=== PATIENT | female | born 1970 | race Caucasian/White ===

== ENCOUNTER 2020-01-04 11:32 | Outpatient (CLI) | payer MEDICAID, SELFPAY ==
--- NOTE | 2020-01-04 11:30 | DI.RAD_ITS ---
EXAM: XR KNEE RT 2V AP,LAT CLINICAL HISTORY: pain. TECHNIQUE: 2D digital imaging was performed. COMPARISON: [facility] KNEE [facility] 4+VIEWS from 08/18/2019 FINDINGS: There is mild joint space narrowing in the medial femoral tibial joint space. Mild periarticular spu rring is seen in the femoral tibial joint. No acute fracture or subluxation. There is a small exoph ytic protrusion at the posterior proximal fibula which may represent a small osteochondroma. There i s a small joint effusion. The soft tissues are unremarkable. IMPRESSION: Mild degenerative changes of the right knee. DATA REPOSITORY: RADIATION DOSE DELIVERED:
== END 2020-01-04 11:52 ==
PROVIDERS: PCP Internal Medicine; Referring Provider Internal Medicine; Visit Provider Orthopaedic Surgery
DX: M25.561 Pain in right knee (principal); M17.11 Unilateral primary osteoarthritis, right knee
CPT/HCPCS: 73560

== ENCOUNTER 2020-08-17 02:22 | Outpatient (CLI) | payer MEDICAID, SELFPAY ==
[2020-08-19 10:23] LABS: COVID-19 RT-PCR Result NEGATIVE (Negative)
== END 2020-08-17 02:42 ==
PROVIDERS: PCP Internal Medicine; Visit Provider Student in an Organized Health Care Education/Training Program
DX: Z11.52 Encounter for screening for COVID-19 (principal); Z01.818 Encounter for other preprocedural examination
CPT/HCPCS: U0003

== ENCOUNTER 2020-08-22 07:44 | Day surgery (SDC) | payer MEDICAID, SELFPAY ==
[2020-08-22] VITALS (9 sets, daily range): BP systolic 128–167; BP diastolic 82–100; PULSE 79–101; RESP 12–20; TEMP 36.4–36.7; O2SAT 95–100
[2020-08-22] MEDS: Lactated Ringers 1,000 ML 80 ML IV (08:37)
--- NOTE | 2020-08-22 09:03 | PDOC.DSDIS_ITS ---
Discharge Plan Disposition Patient Disposition: HOME Condition: Good Discharge Details Reason For Visit: rt knee arthroscopy Attending Provider: Srinivasa Winter Primary Care Provider: Rebeca Irizarry Home Meds and New Rx's Prescriptions: New hydrocodone-acetaminophen 5-325 mg tablet 1 tab PO Q6H PRNQty: 5 RF: 0 acetaminophen [Tylenol Extra Strength] 500 mg tablet 500 mg PO Q6H PRNQty: 40 RF: 0 ibuprofen 600 mg tablet 600 mg PO TID Qty: 30 RF: 0 Continued duloxetine [Cymbalta] 60 mg capsule,delayed release(DR/EC) 60 mg PO DAILY RF: 0 cetirizine 10 mg tablet 10 mg PO DAILY RF: 0 acetaminophen [Tylenol Extra Strength] 500 mg Tablet 1,000 mg PO PRNRF: 0 ibuprofen 200 mg Tablet 400 mg PO PRNRF: 0 albuterol sulfate [ProAir HFA] 90 mcg/actuation Hfa Aerosol Inhaler 2 puff INHALATION PRNRF: 0 Discharge Instructions Stand Alone Forms: [facility] Knee Arthroscopy Referrals: Srinivasa Winter MD [ [facility] STAFF PHYSICIAN] - Equipment/Supplies: Partial Weight Bearing Crutches Activity:: Activity as Tolerated Remove Dressings/Wound Care:: 72 hours Shower/Bathe:: 72 hours Diet:: As Tolerated Discharge Orders Discharge Orders: Discharge Order (Routine); Ordered 08/22/20 Ordered By: Samantha Ordoñez DS: Diagnosis Discharge Diagnosis (1) Tear of medial meniscus of right knee: Status: Acute
[2020-08-22] MEDS: ceFAZolin 2 GM/50 ML BAG IVPB (09:45)
[2020-08-22] MEDS: Bupivacaine 0.5% Pres-Free 30 ML VIAL (10:19)
--- NOTE | 2020-08-22 10:35 | W.PM.OP ---
Date of service: 08/22/20 Time of Service: 10:36 Operative Note Operative Note DATE OF PROCEDURE: 08/22/20 PRE-OP DIAGNOSIS: Right Medial Meniscus Tear POST-OP DIAGNOSIS: same PROCEDURE: Arthroscopic partial medial menisectomy of right knee with chondroplasty of lateral tibia SURGEON: Srinivasa Winter ANESTHESIA: RIAZ ESTIMATED BLOOD LOSS: 0 PATHOLOGY: none sent TOURNIQUET TIME: 0 COMPLICATIONS: None Patient was transported to: PACU Patient's condition: stable Indications: I have seen Nunu in clinic for symptoms of a meniscus tear. This was confirmed based on MRI and exam findings. Nonoperative measures were exhausted but disability and pain persisted. I discussed knee arthroscopy with meniscal intervention with the patient. I reviewed the risks of the procedure to include, but not limited to, bleeding, infection, pain, stiffness, damage to nerves or vessels, recurrence, blood clot. Despite these risks, the patient elected to proceed. 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 The consent was reviewed with the patient and signed. The history and physical was updated. All questions were answered. She was taken back to the operating room. The patient was placed into the supine position on the operating room table. All bony prominences were well padded. Prophylactic antibiotics in the form of Cefazolin were administered. The right leg was then prepped with Chloraprep and draped in a standard fashion with stockinette and extremity drape. A timeout to confirm correct identity, side and site, procedure, allergies, anesthesia, and medical concerns was performed. The leg was placed into a pneumatic leg cohen, SPIDER2. A standard lateral portal was made at the lateral border of the patella tendon in line with the inferior pole of the patella, soft spot. The skin and deep tissue was incised sharply and the blunt trochar was inserted atraumatically. A diagnostic arthroscopy was performed and the findings are listed above. The suprapatellar pouch had moderate inflammatory changes. The patellofemoral articulation showed mild, Grade I/II, chondromalacia centrally of the patella and trochlea with good tracking. The lateral gutter had no loose bodies and the medial gutter had no loose bodies. The knee was brought into some valgus stress in extension to open the medial compartment. A medial portal was made, localized by a spinal needle. The portal was created with an #11 blade through skin and capsule under direct visualization avoiding any meniscal injury. A probe was then inserted into the medial compartment. The medial compartment was fully inspected. The chondral surface of the tibia showed Grade II chondromalacia and the surface of the femur showed Grade II chondromalacia. The medial meniscus had a complex tear of the root with both horizontal and radial components. There also was apparent changes to the body of medial meniscus from previous partial menisecotmy. After evaluation, the meniscus was debrided down to a stable base using a series of biters and arthroscopic marcus. It was probed afterwards to confirm that the tear had been removed and the meniscus was stable. The notch was then inspected which showed an intact ACL and an intact PCL. The leg was then brought into a figure of 4 position. The lateral compartment was fully inspected with the arthroscope and a probe. The chondral surface of the lateral femur showed no significant chondromalacia. The chondral surface of the lateral tibia showed focal Grade IV chondromalacia over the posterolateral aspect of the tibia. The lateral meniscus had no meniscal tear. Cartilage surfaces were debrided of any flaps, leaving any intact fibers. The arthroscope was brought back into the suprapatellar pouch and the leg was in full extension. The knee was thoroughly irrigated with the arthroscopic fluid on high flow and pressure. Inflow was stopped and excess fluid was removed. The wounds were closed with 4-0 Nylon. The portal sites and the knee were injected with 0.5% Bupivacaine. The portals were dressed with Xeroform, 4x4 gauze, ABD pad, Kerlix and an MARIELY wrap. A cryo-cuff was applied. The patient tolerated the procedure well and was returned to the Same Day Surgery area in a stable condition suffering no known complication.
[2020-08-22] MEDS: Albuterol/Ipratropium 3 ML UPD VIAL UPD (11:20)
[2020-08-22] MEDS: Acetaminophen 325 MG TAB 650 MG PO (12:33)
== END 2020-08-22 13:42 | disposition home or self-care (01) ==
PROVIDERS: PCP Internal Medicine; Visit Provider Student in an Organized Health Care Education/Training Program
PROC: (CPT 29870; principal; 2020-08-22 10:00)
DX: S83.231A Complex tear of medial meniscus, current injury, right knee, initial encounter (principal); X58.XXXA Exposure to other specified factors, initial encounter; M94.261 Chondromalacia, right knee; J45.909 Unspecified asthma, uncomplicated; W00.0XXA Fall on same level due to ice and snow, initial encounter; Y93.24 Activity, cross country skiing
CPT/HCPCS: 29881; J0690; J1100; J2250; J2405; J2704; J7620

== ENCOUNTER 2021-09-08 12:48 | Emergency (ER) | payer OTHER, MEDICAID, SELFPAY ==
[2021-09-08 12:58] VITALS: BP 152/109; PULSE 90; O2SAT 97
--- NOTE | 2021-09-08 14:00 | DI.CT_ITS ---
Exam(s) CT BRAIN NECK CTA EXAM: CT BRAIN NECK CTA CLINICAL HISTORY: R eye blurry vision, r/o acute cva. TECHNIQUE: Imaging Protocol: Axial CT angiography was performed with multi-slice acquisition and mu lti-planar and/or 3D reconstructions. CONTRAST MATERIAL: Intravenous: Omnipaque 350 Contrast volume:100 mL COMPARISON: No exams were available for comparison FINDINGS: CT Head W/O and W: Ventricles and Extra axial spaces: Normal in size and morphology for the patient's age. Hemorrhage: None. Cerebral parenchyma: No acute territorial infarct. There do appear to be subtle areas of decreased a ttenuation in the white matter suggesting chronic microvascular ischemic disease. Midline shift: None. Brainstem/Cerebellum: Normal. Calvarium: Normal. Visualized Paranasal sinuses/Mastoids: Clear. Soft Tissues: Unremarkable. Enhancement: Unremarkable. CTA Neck W: Common Carotid: Right: No dissection, occlusion or significant stenosis. Left: No dissection, occlusion or significant stenosis. External Carotid: Right: No occlusion or significant stenosis. Left: No occlusion or significant stenosis. Internal Carotid: Right: No dissection, occlusion or significant stenosis. Left: No dissection, occlusion or significant stenosis. Vertebral Artery: Right: No dissection, occlusion or significant stenosis. Left: No dissection, occlusion or significant stenosis. Lung Apices: Normal. Bones: Within normal limits for the patient's age. Soft Tissues: Normal. Thyroid gland: Unremarkable. CTA Brain W: Internal Carotid Arteries: Normal. Anterior Cerebral Arteries: Right: No aneurysm, occlusion or significant stenosis. Left: No aneurysm, occlusion or significant stenosis. Middle Cerebral Arteries: Right: No aneurysm, occlusion or significant stenosis. Left: No aneurysm, occlusion or significant stenosis. Posterior Cerebral Arteries: Right: No aneurysm, occlusion or significant stenosis. Left: No aneurysm, occlusion or significant stenosis. Vertebral Arteries: Right: No aneurysm, occlusion or significant stenosis. Left: No aneurysm, occlusion or significant stenosis. Basilar Artery: No aneurysm, occlusion or significant stenosis. IMPRESSION: 1. No large vessel occlusion or significant stenosis on the CT angiography of the head. 2. No acute intracranial process. 3. No occlusion or significant stenosis on the CT angiography of the neck. RADIATION DOSE DELIVERED: 2,109.3mGy.cm Total DLP DATA REPOSITORY: All CT scans at this facility are submitted to the National Radiology Data Registry (NRDR) Dose Index Registry (DIR) with the [employer] ([employer]). RADIATION OPTIMIZATION: All CT scans at this facility use at least one of these dose optimization te chniques: automated exposure control; mA and/or kV adjustment per patient size (includes targeted exa ms where dose is matched to clinical indication); or iterative reconstruction.
--- NOTE | 2021-09-08 14:00 | RT.EKG_ITS ---
APPROVED REPORT Exam: Resting ECG Reason for Exam: possible cva Patient Location: E HR:78 bpm ECG Measurements Heart Rate 78 AXIS WI 174 P 53 QRSd 98 QRS 17 QT 389 T 55 QTc 443 Conclusion Sinus rhythm...normal P axis, V-rate 60- 99. Sinus. Normal axis. No STEMI. I have reviewed and interpreted ECG and agree with software generated interpretation.
--- NOTE | 2021-09-08 14:00 | DI.RAD_ITS ---
Exam(s) XR CHEST 2V PA LATERAL EXAM: XR CHEST 2V PA LATERAL CLINICAL HISTORY: possible cva, r/o acute disease TECHNIQUE: 2D digital imaging was performed of the chest. Two images were obtained. PA and lateral views were obtained. COMPARISON: No exams were available for comparison FINDINGS: MEDIASTINUM: Normal. HEART: Normal. PULMONARY VASCULATURE: Normal. LUNGS: Clear. PLEURAL SPACE: No pleural effusion or pneumothorax. BONE:Within normal limits for the patient's age. OTHER FINDINGS:Normal. IMPRESSION: No acute pulmonary findings. DATA REPOSITORY: RADIATION DOSE DELIVERED:
[2021-09-08] MEDS: Normal Saline 1,000 ML 1000 ML IV (14:18)
[2021-09-08] MEDS: ACETAMINOPHEN 1,000 MG/100 ML BTL 400 MG IVPB (14:18)
[2021-09-08 14:23] LABS: Abs Immature Grans 0.02 10^3/uL (0.0-0.06); Absolute Basophil Count 0.07 10^3/uL (0.0-0.2); Absolute Eosinophil Count 0.14 10^3/uL (0.0-0.7); Absolute Lymphocyte Count 1.94 10^3/uL (1.2-3.4); Absolute Monocyte Count 0.62 10^3/uL (0.1-0.8); Absolute Neutrophil Count 3.74 10^3/uL (1.2-6.7); Basophils % 1.1; Eosinophils % 2.1; HCT 43.2 % (36.0-46.0); HGB 14.2 g/dL (11.2-15.7); Immature Grans % 0.3; Lymphocytes % 29.7; MCH 30.5 pg (27.0-33.0); MCHC 32.9 % (32.0-36.0); MCV 92.7 fL (80-95); MPV 9.8 fL (8.0-11.0); Monocytes % 9.5; Neutrophils % 57.3; Nucleated RBC 0 %; Platelet Count 277 10^3/uL (130-400); RBC 4.66 10^6/uL (3.93-5.22); RDW 12.8 % (11.7-14.6); RDW-SD 43.4 fL; WBC 6.53 10^3/uL (4.4-10.8)
[2021-09-08 14:25] LABS: ESR 12 mm/hr (0-30)
--- NOTE | 2021-09-08 14:28 | ED.GENADUL_ITS ---
Discharge Plan Disposition Patient Disposition: HOME Condition: Improving Discharge Details Clinical Impression: Floaters in visual field, Unilateral visual loss Primary Care Provider: Rebeca Irizarry ED Provider: Johanna Fields Home Meds and New Rx's Prescriptions: Continued losartan 50 mg tablet 100 mg PO DAILY 0RF montelukast [Singulair] 10 mg tablet 10 mg PO DAILY 0RF Zyrtec 10 mg capsule 10 mg PO DAILY PRN0RF Advair HFA 115-21 mcg/actuation HFA aerosol inhaler 2 puff inhalation BID 0RF ibuprofen 600 mg tablet 600 mg PO TID Qty: 60 0RF Rx Instructions: Take one tablet up to three times daily as needed duloxetine [Cymbalta] 60 mg capsule,delayed release(DR/EC) 60 mg PO DAILY 0RF omeprazole 40 mg capsule,delayed release(DR/EC) 40 mg PO DAILY 0RF Trulicity 0.75 mg/0.5 mL pen injector 0.75 mg subcut QWEEK 0RF acetaminophen [Tylenol Extra Strength] 500 mg Tablet 1,000 mg PO PRN0RF albuterol sulfate [ProAir HFA] 90 mcg/actuation Hfa Aerosol Inhaler 2 puff INHALATION PRN0RF Label Comments: pt used in the summer when it was humid acetaminophen [Tylenol Extra Strength] 500 mg tablet 500 mg PO Q6H PRNQty: 40 0RF Discharge Instructions Instructions: Blurred Vision (ED), Visual Floaters (ED) Additional Instructions: Your lab work, EKG and imaging today is reassuring and shows no evidence of acute concerning findings. Per discussion with [facility] ophthalmology, it is recommended that you follow- up with an clinical account liaison or ophthalmology for a formal eye exam to rule out pote ntial retinal detachment, a blood clot in your eye or other optic or retinal disease. Drink plenty of fluids and get plenty of rest. Call your clinical account liaison tomorrow to schedule an eye test as soon as possible and for referral to ophthalmology if indicated. Return immediately to the emergency department if you develop any worsening or new concerning symptoms. Referrals: Terrell Holm MD [ [facility] STAFF PHYSICIAN] - Discharge Data Discharge Date/Time-TO BE ENTERED AT DEPARTURE: 09/08/21 18:19 Discharge Physician: Johanna Fields Medical Decision Making 51-year-old female with a history GERD, asthma, anxiety, depression, hypertension, diabetes presents for floaters and decreased vision in the right eye for the past 2 days. She has mild headache right temporal Blood pressure hypertensive, remainder vitals within normal limits. She appears comfortable and nontoxic. Normal inspection of the eye. PERRLA. EOMI. Limited funduscopic exam secondary to lack of dilation. She has no focal deficits. No cerebellar signs. No meningeal signs. No right temporal tender ness. Differential diagnosis includes retinal detachment, lens detachment, temporal arteritis, CVA, optic nerve stroke or other visual abnormality. Will place an IV, bolus IV fluids, screening labs, EKG, CTA head and neck, chest x-ray. Labs and imaging reviewed and unremarkable. Normal white blood cell count. Normal electrolytes. Normal ESR and CRP. CTA head and neck and chest x-ray negative for acute findings. Patient reassessed at bedside and states her headache is resolved. Bedside ultrasound negative for obvious lens dislocation or retinal detachment. We will consult [facility] with ophthalmology for further recommendations. Visual acuity OD 20/30, OS 20/40, OU 20/10 Discussed with [facility] ophthalmology -- reassuring that pt has good visual acuity with symptoms present for 2 days -- presentation not consistent with CVA as there is a unilateral deficit - would suspect a bilateral deficit in a posterior circulation stroke - reassuring that stroke work-up here negative. Would recommend an afferent pupillary defect test to rule out optic nerve/retinal disease. Recommends that patient follow up with an clinical account liaison or wheel alignment technician as soon as possible for a fundoscopic exam with dilation for further evaluation to rule out potential retinal detachment, retinal occlusion or diabetic hemorrhage, etc but no indication for emergent transfer at this time and patient can follow-up with optometry this week. APD test done at bedside and there is a questionable afferent pupillary defect on the right with swinging light test. Patient does report that she notes that the light appears less bright in her right eye with this test. Patient complained of some mild headache prior to discharge and was given a dose of Toradol. Patient is requesting to go home at this time. She was advised to call her clinical account liaison tomorrow for follow-up and for referral to ophthalmology if indicated. Usual and customary return precautions given prior to discharge. Medical Records Medical records reviewed: Yes I reviewed the patient's medical records. Imaging Data Radiologic Study: Radiologist's impression: CT Angiography Head Without And With Contrast, Arteriography Exam date and time: 09/08/2021 2:09 PM Age: 51 years old Clinical indication: Other: R eye blurry vision, R/O acute CVA TECHNIQUE: Imaging protocol: Computed tomographic angiography of the head without and with contrast. Exam focused on the arteries. 3D rendering (Not supervised by radiologist): MIP and/or 3D reconstructed images were created by the technologist. Contrast material: OMNIPAQUE 350; Contrast volume: 85 ml; Contrast route: INTRAVENOUS (IV);? Other technique: STROKE PROTOCOL was implemented. COMPARISON: No relevant prior studies available. FINDINGS: ANTERIOR CIRCULATION: Right internal carotid artery: Intracranial segment is patent with no significant stenosis or occlusion. No aneurysm. Right middle cerebral artery: No occlusion or significant stenosis. No aneurysm.? Right anterior cerebral artery: No occlusion or significant stenosis. No aneurysm.? Left internal carotid artery: Intracranial segment is patent with no significant stenosis. No aneurysm. Left middle cerebral artery: No occlusion or significant stenosis. No aneurysm. ? Left anterior cerebral artery: No occlusion or significant stenosis. No aneurysm.? POSTERIOR CIRCULATION: Right vertebral artery: No occlusion or significant stenosis. No aneurysm.? Left vertebral artery: No occlusion or significant stenosis. No aneurysm.? Basilar artery: No occlusion or significant stenosis. No aneurysm. Right posterior cerebral artery: No occlusion or significant stenosis. No aneurysm.? Left posterior cerebral artery: No occlusion or significant stenosis. No aneurysm.? HEAD: Brain: Age-related involutional changes and chronic microvascular ischemic disease. No evidence for acute transcortical infarct. No mass effect or midline shift. No extra-axial collection. No acute intracranial hemorrhage. Basal cisterns are patent. Cerebral ventricles: Normal. No ventriculomegaly. Bones/joints: Unremarkable. No acute fracture. Paranasal sinuses: Visualized sinuses are normal. No fluid levels. Mastoid air cells: Visualized mastoids are normal. No mastoid effusion. Soft tissues: Unremarkable. IMPRESSION: 1. No evidence for acute transcortical infarct, acute intracranial hemorrhage, or mass effect. Kayla Stroke Program Early CT Score (ASPECTS) = 10 2. No significant stenosis or aneurysm. CT Angiography Neck With Contrast Exam date and time: 09/08/2021 2:09 PM Age: 51 years old Clinical indication: Other: R eye blurry vision, R/O acute CVA TECHNIQUE: Imaging protocol: Computed tomography angiography of the neck with contrast. 3D rendering (Not supervised by radiologist): MIP and/or 3D reconstructed images were created by the technologist. Radiation optimization: All CT scans at this facility use at least one of these dose optimization techniques: automated exposure control; mA and/or kV adjustment per patient size (includes targeted exams where dose is matched to clinical indication); or iterative reconstruction. Contrast material: OMNIPAQUE 350; Contrast volume: 85 ml; Contrast route: INTRAVENOUS (IV);? COMPARISON: No relevant prior studies available. FINDINGS: Right common carotid artery: No stenosis. No dissection or occlusion. Right internal carotid artery: No stenosis of the extracranial segment. No dissection or occlusion. Right external carotid artery: No occlusion or stenosis of the origin.? Left common carotid artery: No stenosis. No dissection or occlusion. Left internal carotid artery: No stenosis of the extracranial segment. No dissection or occlusion. Left external carotid artery: No occlusion or stenosis of the origin.? Right vertebral artery: No stenosis. No dissection or occlusion. Left vertebral artery: No stenosis. No dissection or occlusion. Soft tissues: Normal. No significant soft tissue swelling. Bones/joints: No acute fracture. IMPRESSION: No significant stenosis. No evidence of acute dissection. XR Chest Exam date and time: 09/08/2021 2:09 PM Age: 51 years old Clinical indication: Possible CVA, R/O acute disease TECHNIQUE: Imaging protocol: XR of the chest. Views: 2 views. COMPARISON: CT BRAIN NECK CTA 09/08/2021 2:36 PM FINDINGS: Lungs: Clear lungs. Pleural spaces: No pneumothorax. No sizable pleural effusion. Heart/Mediastinum: No cardiomegaly. Bones/joints: Unremarkable. IMPRESSION: Clear lungs. Lab Data Lab results reviewed: Yes I reviewed the patient's lab results. Labs: Laboratory Tests Range/Units 09/08/21 09/08/21 09/08/21 14:10 14:10 14:10 WBC (4.4-10.8) 10^3/uL 6.53 RBC (3.93-5.22) 10^6/uL 4.66 Hgb (11.2-15.7) g/dL 14.2 Hct (36.0-46.0) % 43.2 MCV (80-95) fL 92.7 MCH (27.0-33.0) pg 30.5 MCHC (32.0-36.0) % 32.9 RDW (11.7-14.6) % 12.8 Plt Count (130-400) 10^3/uL 277 MPV (8.0-11.0) fL 9.8 Immature Gran % 0.3 Neutrophils % 57.3 Lymphocytes % 29.7 Monocytes % 9.5 Eosinophils % 2.1 Basophils % 1.1 Nucleated RBC % % 0 Absolute Neutrophils (1.2-6.7) 10^3/uL 3.74 Absolute Lymphocytes (1.2-3.4) 10^3/uL 1.94 Absolute Monocytes (0.1-0.8) 10^3/uL 0.62 Absolute Eosinophils (0.0-0.7) 10^3/uL 0.14 Absolute Basophils (0.0-0.2) 10^3/uL 0.07 ESR (0-30) mm/hr 12 Sodium (136-145) mmol/L 138 Potassium (3.5-5.1) mmol/L 3.9 Chloride (98-107) mmol/L 105 Carbon Dioxide (21.0-32.0) mmol/L 27.9 Anion Gap (3-11) mmol/L 5.1 BUN (7-18) mg/dL 10 Creatinine (0.55-1.02) mg/dL 0.7 Estimated GFR/1.73 m2 (mL/min/1.73m2) >= 60.00 Glucose (74-106) mg/dL 138 H Calcium (8.5-10.1) mg/dL 9.1 Magnesium (1.8-2.4) mg/dL 2.2 Total Bilirubin (0.2-1.0) mg/dL 0.3 AST (15-37) U/L 19 ALT (14-59) U/L 44 Alkaline Phosphatase (46-116) U/L 81 Troponin I (<or=60) ng/L < 50 C-Reactive Protein (0.0-0.3) mg/dL 0.20 Total Protein (6.4-8.2) g/dL 7.8 Albumin (3.4-5.0) g/dL 3.7 ECG Data Attestation: I personally reviewed and interpreted this ECG (s) as follows: Prior ECG tracings: available for review Interpretation: Rate of 78, sinus, no STEMI, nondiagnostic. HPI General Mode of arrival: ambulatory . Date/Time Provider Initiated Documentation: 09/08/21 13:02 . Limitations to Documentation: no limitations . Information obtained by: patient . HPI Narrative: Patient is a 51-year-old female with a history GERD, asthma, anxiety, depression, hypertension, diabetes presents for floaters and decreased vision in the right eye for the past 2 days. She states 2 nights ago she noted floaters in her right eye. She states since then she feels that she has decreased vision loss in the medial half of her right eye. She feels that when she is in bright light, the floaters become worse. She does admit to a right sided headache in her right temporal region for the past 2 weeks, worse today. She denies any eye pain, dizziness, neck pain, fever, chest pain, shortness of breath or abdominal pain. Related Data Home Medications Medication Instructions Recorded Confirmed duloxetine 60 mg capsule,delayed 60 mg PO DAILY 08/31/19 09/08/21 release (Cymbalta) acetaminophen 500 mg tablet 1,000 mg PO PRN 08/22/20 07/09/21 (Tylenol Extra Strength) acetaminophen 500 mg tablet 500 mg PO Q6H PRN #40 tab 08/22/20 07/09/21 (Tylenol Extra Strength) albuterol sulfate 90 mcg/actuation 2 puff INHALATION PRN 08/22/20 07/09/21 aerosol inhaler (ProAir HFA) omeprazole 40 mg capsule,delayed 40 mg PO DAILY 02/28/21 09/08/21 release losartan 50 mg tablet 100 mg PO DAILY 04/25/21 09/08/21 montelukast 10 mg tablet 10 mg PO DAILY 04/25/21 09/08/21 (Singulair) dulaglutide 0.75 mg/0.5 mL 0.75 mg SUBCUT QWEEK 06/18/21 09/08/21 subcutaneous pen injector (Trulicity) cetirizine 10 mg capsule (Zyrtec) 10 mg PO DAILY PRN 07/09/21 07/09/21 fluticasone propionate 115 2 puff INHALATION BID 07/09/21 09/08/21 mcg-salmeterol 21 mcg/actuation HFA inhaler (Advair HFA) ibuprofen 600 mg tablet 600 mg PO TID #60 tab 07/09/21 09/08/21 Previous Rx's Medication Instructions Recorded acetaminophen 500 mg tablet 500 mg PO Q6H PRN #40 tab 08/22/20 (Tylenol Extra Strength) ibuprofen 600 mg tablet 600 mg PO TID #60 tab 07/09/21 Allergies Allergy/AdvReac Type Severity Reaction Status Date / Time codeine Allergy Unknown Skin Rash Verified 09/08/21 13:02 Penicillins Allergy Unknown Skin Rash Verified 09/08/21 13:02 sulfamethoxazole Allergy Unknown Skin Rash Verified 09/08/21 13:02 [From Bactrim] tramadol Allergy Unknown Other (See Verified 09/08/21 13:02 Comment) trimethoprim [From Bactrim] Allergy Unknown Skin Rash Verified 09/08/21 13:02 latex AdvReac Intermediate rash Verified 09/08/21 13:02 nitrofurantoin AdvReac Unknown Vomitting Verified 09/08/21 13:02 [From Macrobid] General Stated Complaint: EyeProblem TRISTON: 3 Review of Systems All systems reviewed & are unremarkable except as noted in HPI and below Constitutional Constitutional: Reports as per HPI, Denies chills, Denies excessive sweating, Denies fatigue, Denies fever(s) and Reports headache(s) Eyes Eyes: Reports blurry vision and Reports loss of vision ENT Ears, Nose, Mouth, and Throat: Denies dizziness, Reports headache(s), Denies sore throat and Denies throat swelling Cardiovascular Cardiovascular: Denies chest pain and Denies dyspnea Respiratory Respiratory: Denies cough and Denies dyspnea Gastrointestinal Gastrointestinal: Denies abdominal pain, Denies diarrhea and Denies vomiting Genitourinary Genitourinary: Denies hematuria and Denies dysuria Musculoskeletal Musculoskeletal: Denies back pain and Denies numbness Integumentary/Breasts Skin/Breast: Denies lesions and Denies rash Neurologic Neurologic: Denies behavioral changes, Denies confusion, Denies dizziness, Reports headache(s), Denies localized weakness, Reports loss of vision and Denies numbness Psychiatric Psychiatric: Denies behavioral changes, Denies confusion and Denies depression Endocrine Endocrine: Denies excessive sweating and Denies fatigue Hematologic/Lymphatic Hematologic/Lymphatic: Denies easy bruising and Denies lymphadenopathy Allergic/Immunologic Allergic/Immunologic: Denies throat swelling PFSH All Active Problems (Updated 09/08/21 @ 18:02 by Johanna Fields DO) Floaters in visual field (Acute) Unilateral visual loss (Acute) Left knee DJD (Acute) Synvisc injection: 07/09/2021 Internal derangement of left knee (Acute) Tear of medial meniscus of right knee (Acute) S/P arthroscopy with partial medial meniscectomy: 08/22/2020 Bilateral knee pain (Acute) Pain in right knee (Acute) Low back pain (Acute) Arthritis (Acute) Gastroesophageal reflux disease (Chronic) Asthma (Chronic) Migraine aura without headache (Acute) PTSD (post-traumatic stress disorder) (Acute) Mixed anxiety and depressive disorder (Acute) Anxiety (Chronic) Major depression (Acute) Medical History (Updated 09/08/21 @ 18:02 by Johanna Fields DO) Carpal tunnel syndrome Surgical History (Updated 09/04/20 @ 08:55 by AMANDA Drake) H/O cystoscopy H/O elbow surgery Right medial epicondylitis procedure H/O knee surgery B/L knee arthroscopies H/O wrist surgery Right wrist fusion with subsequent hardware removal later H/O: hysterectomy History of carpal tunnel surgery of right wrist Previous section Family History Sister Cancer Maternal Grandmother Cancer Social History Smoking/Tobacco Use Status: Never Smoking risk assessment performed?: Yes Alcohol Intake: never Drug use: Never Substance use type: does not use Current gender identity: female Do you feel safe at home: Yes Do you feel safe in your relationship?: Yes Additional Social history: pt not in relationship Exam Const General: cooperative and healthy appearing Orientation: alert, awake and oriented x3 HENMT Head: normal to inspection Ears: hearing grossly normal bilaterally and external ears normal General nose exam: external nose normal Face and sinus: normal facial exam Mouth: oral mucosae normal Eyes General: appearance normal, both eyes and all related structures Periorbital: periorbital findings normal Eyelids: eyelids normal Conjunctivae: conjunctivae normal Sclera: sclerae normal Pupils: PERRL EOM: EOM intact bilaterally Direct ophthalmoscopy: other (limited funduscopic exam due to lack of dilation, no obvious abnormality) Neck Neck: normal visual inspection Lymphatic: no lymphadenopathy noted Resp Effort & Inspection: normal respiratory effort and able to speak in complete sentences Auscultation: clear to auscultation bilaterally Cardio Rate: regular rate Rhythm: regular rhythm GI Inspection: normal to inspection Palpation: soft, not firm, no guarding, no hepatosplenomegaly, no masses and nontender Auscultation: normal bowel sounds Back/Spine/Pelvis Back: no CVA tenderness Skin General skin exam: no rashes or lesions noted Neuro General: patient alert, patient awake and patient oriented x3 Cranial Nerves: CN's II-XI intact bilaterally Cognition: normal cognition Speech: speech normal Gait: normal gait Motor: muscle tone normal throughout, strength 5/5 throughout and no movement abnormalities noted Sensory Exam: no sensory deficits noted Extrem General: normal to inspection and full ROM Psych Appearance: grossly normal Mental Status: mental status grossly normal Speech and Movement: speech and movement normal Affect: normal affect Thought Process: normal Course Vital Signs Vital signs: Vital Signs Pulse 90 09/08/21 12:58 Blood Pressure 152/109 H 09/08/21 12:58 Pulse Oximetry 97 09/08/21 12:58 Pulse 90 09/08/21 12:58 Respiratory Effort Non-Labored 09/08/21 13:05 Blood Pressure 152/109 H 09/08/21 12:58 Blood Pressure Position Sitting 09/08/21 12:58 Pulse Oximetry 97 09/08/21 12:58 Oxygen Delivery Method Room Air 09/08/21 12:58 Oxygen Flow Rate 0 09/08/21 12:58 Lab/Test Results Lab/Test Results: Laboratory Tests Range/Units 09/08/21 09/08/21 14:10 14:10 WBC (4.4-10.8) 10^3/uL 6.53 RBC (3.93-5.22) 10^6/uL 4.66 Hgb (11.2-15.7) g/dL 14.2 Hct (36.0-46.0) % 43.2 MCV (80-95) fL 92.7 MCH (27.0-33.0) pg 30.5 MCHC (32.0-36.0) % 32.9 RDW (11.7-14.6) % 12.8 Plt Count (130-400) 10^3/uL 277 MPV (8.0-11.0) fL 9.8 Immature Gran % 0.3 Neutrophils % 57.3 Lymphocytes % 29.7 Monocytes % 9.5 Eosinophils % 2.1 Basophils % 1.1 Nucleated RBC % % 0 Absolute Neutrophils (1.2-6.7) 10^3/uL 3.74 Absolute Lymphocytes (1.2-3.4) 10^3/uL 1.94 Absolute Monocytes (0.1-0.8) 10^3/uL 0.62 Absolute Eosinophils (0.0-0.7) 10^3/uL 0.14 Absolute Basophils (0.0-0.2) 10^3/uL 0.07 ESR (0-30) mm/hr 12
[2021-09-08 14:39] LABS: ALT 44 U/L (14-59); AST 19 U/L (15-37); Albumin 3.7 g/dL (3.4-5.0); Alkaline Phosphatase 81 U/L (46-116); Anion Gap 5.1 mmol/L (3-11); BUN 10 mg/dL (7-18); Bilirubin, Total 0.3 mg/dL (0.2-1.0); CO2 27.9 mmol/L (21.0-32.0); CREATININE 0.7 mg/dL (0.55-1.02); Calcium 9.1 mg/dL (8.5-10.1); Chloride 105 mmol/L (98-107); Glucose 138 mg/dL (74-106); Magnesium 2.2 mg/dL (1.8-2.4); Potassium 3.9 mmol/L (3.5-5.1); Sodium 138 mmol/L (136-145); Total Protein 7.8 g/dL (6.4-8.2); Troponin I < 50 ng/L (<or=60)
[2021-09-08] MEDS: Normal Saline Flush 10 ML SYR IVP (14:47)
[2021-09-08] MEDS: Omnipaque 350 MG/ML 100 ML BTL IJ (14:47)
[2021-09-08 15:10] VITALS: RESP 14; TEMP 36.6
--- NOTE | 2021-09-08 15:27 | DI.VRAD_ITS ---
PROCEDURE INFORMATION: Exam: XR Chest Exam date and time: 09/08/2021 2:09 PM Age: 51 years old Clinical indication: Possible CVA, R/O acute disease TECHNIQUE: Imaging protocol: XR of the chest. Views: 2 views. COMPARISON: CT BRAIN NECK CTA 09/08/2021 2:36 PM FINDINGS: Lungs: Clear lungs. Pleural spaces: No pneumothorax. No sizable pleural effusion. Heart/Mediastinum: No cardiomegaly. Bones/joints: Unremarkable. IMPRESSION: Clear lungs. Dictated and Authenticated by: Serg Truong MD. Ordering:KYAW Spencer MD
--- NOTE | 2021-09-08 15:34 | DI.VRAD_ITS ---
PROCEDURE INFORMATION: Exam: CT Angiography Head Without And With Contrast, Arteriography Exam date and time: 09/08/2021 2:09 PM Age: 51 years old Clinical indication: Other: R eye blurry vision, R/O acute CVA TECHNIQUE: Imaging protocol: Computed tomographic angiography of the head without and with contrast. Exam focused on the arteries. 3D rendering (Not supervised by radiologist): MIP and/or 3D reconstructed images were created by the technologist. Contrast material: OMNIPAQUE 350; Contrast volume: 85 ml; Contrast route: INTRAVENOUS (IV); Other technique: STROKE PROTOCOL was implemented. COMPARISON: No relevant prior studies available. FINDINGS: ANTERIOR CIRCULATION: Right internal carotid artery: Intracranial segment is patent with no significant stenosis or occlusion. No aneurysm. Right middle cerebral artery: No occlusion or significant stenosis. No aneurysm. Right anterior cerebral artery: No occlusion or significant stenosis. No aneurysm. Left internal carotid artery: Intracranial segment is patent with no significant stenosis. No aneurysm. Left middle cerebral artery: No occlusion or significant stenosis. No aneurysm. Left anterior cerebral artery: No occlusion or significant stenosis. No aneurysm. POSTERIOR CIRCULATION: Right vertebral artery: No occlusion or significant stenosis. No aneurysm. Left vertebral artery: No occlusion or significant stenosis. No aneurysm. Basilar artery: No occlusion or significant stenosis. No aneurysm. Right posterior cerebral artery: No occlusion or significant stenosis. No aneurysm. Left posterior cerebral artery: No occlusion or significant stenosis. No aneurysm. HEAD: Brain: Age-related involutional changes and chronic microvascular ischemic disease. No evidence for acute transcortical infarct. No mass effect or midline shift. No extra-axial collection. No acute intracranial hemorrhage. Basal cisterns are patent. Cerebral ventricles: Normal. No ventriculomegaly. Bones/joints: Unremarkable. No acute fracture. Paranasal sinuses: Visualized sinuses are normal. No fluid levels. Mastoid air cells: Visualized mastoids are normal. No mastoid effusion. Soft tissues: Unremarkable. IMPRESSION: 1. No evidence for acute transcortical infarct, acute intracranial hemorrhage, or mass effect. Kayla Stroke Program Early CT Score (ASPECTS) = 10 2. No significant stenosis or aneurysm. PROCEDURE INFORMATION: Exam: CT Angiography Neck With Contrast Exam date and time: 09/08/2021 2:09 PM Age: 51 years old Clinical indication: Other: R eye blurry vision, R/O acute CVA TECHNIQUE: Imaging protocol: Computed tomography angiography of the neck with contrast. 3D rendering (Not supervised by radiologist): MIP and/or 3D reconstructed images were created by the technologist. Radiation optimization: All CT scans at this facility use at least one of these dose optimization techniques: automated exposure control; mA and/or kV adjustment per patient size (includes targeted exams where dose is matched to clinical indication); or iterative reconstruction. Contrast material: OMNIPAQUE 350; Contrast volume: 85 ml; Contrast route: INTRAVENOUS (IV); COMPARISON: No relevant prior studies available. FINDINGS: Right common carotid artery: No stenosis. No dissection or occlusion. Right internal carotid artery: No stenosis of the extracranial segment. No dissection or occlusion. Right external carotid artery: No occlusion or stenosis of the origin. Left common carotid artery: No stenosis. No dissection or occlusion. Left internal carotid artery: No stenosis of the extracranial segment. No dissection or occlusion. Left external carotid artery: No occlusion or stenosis of the origin. Right vertebral artery: No stenosis. No dissection or occlusion. Left vertebral artery: No stenosis. No dissection or occlusion. Soft tissues: Normal. No significant soft tissue swelling. Bones/joints: No acute fracture. IMPRESSION: No significant stenosis. No evidence of acute dissection. REFERENCES: NASCET CRITERIA. The degree of internal carotid artery stenosis is based on NASCET criteria. Normal is no stenosis. Mild is less than 50% stenosis. Moderate is 50-69% stenosis. Severe is 70% to 99% stenosis. Total occlusion is no detectable patent lumen. Dictated and Authenticated by: Serg Truong MD. Ordering:KYAW Spencer MD
[2021-09-08] MEDS: Ketorolac 30 MG/ML VIAL IVP (18:10)
[2021-09-08 18:15] VITALS: PULSE 97; RESP 14; O2SAT 98
== END 2021-09-08 18:19 | disposition home or self-care (01) ==
PROVIDERS: Emergency Provider Physician Assistant; PCP Internal Medicine
DX: H43.391 Other vitreous opacities, right eye (principal); H53.8 Other visual disturbances; R51.9 Headache, unspecified
CPT/HCPCS: 70496; 70498; 80053; 85652; 93005; 96361; 96365; 96375; 99285; 71046; 83735; 84484; 85025; 86140; 93010; 99284; J0131; J1885; J3490

== ENCOUNTER 2022-04-17 03:39 | Outpatient (RCR) | payer MEDICAID, SELFPAY ==
[2022-04-03] MEDS: Normal Saline Flush 10 ML SYR IVP (07:25)
[2022-04-03 07:43] LABS: Abs Immature Grans 0.11 10^3/uL (0.0-0.06); Absolute Basophil Count 0.12 10^3/uL (0.0-0.2); Absolute Eosinophil Count 0.07 10^3/uL (0.0-0.7); Absolute Lymphocyte Count 2.17 10^3/uL (1.2-3.4); Absolute Monocyte Count 1.04 10^3/uL (0.1-0.8); Absolute Neutrophil Count 6.18 10^3/uL (1.2-6.7); Basophils % 1.2; Eosinophils % 0.7; HCT 41.4 % (36.0-46.0); HGB 13.6 g/dL (11.2-15.7); Immature Grans % 1.1; Lymphocytes % 22.4; MCH 30.8 pg (27.0-33.0); MCHC 32.9 % (32.0-36.0); MCV 94 fL (80-95); MPV 10.2 fL (8.0-11.0); Monocytes % 10.7; Neutrophils % 63.9; Platelet Count 309 10^3/uL (130-400); RBC 4.41 10^6/uL (3.93-5.22); RDW 13.2 % (11.7-14.6); WBC 9.69 10^3/uL (4.4-10.8)
[2022-04-03 07:58] LABS: ALT 37 U/L (14-59); AST 16 U/L (15-37); Albumin 3.3 g/dL (3.4-5.0); Alkaline Phosphatase 96 U/L (46-116); Anion Gap 10.7 mmol/L (3-11); BUN 10 mg/dL (7-18); Bilirubin, Total 0.2 mg/dL (0.2-1.0); CO2 25.3 mmol/L (21.0-32.0); Calcium 8.5 mg/dL (8.5-10.1); Chloride 103 mmol/L (98-107); Estimated GFR 67.36 (mL/min/1.73m2); Glucose 249 mg/dL (74-106); Potassium 3.6 mmol/L (3.5-5.1); Sodium 139 mmol/L (136-145); Total Protein 7.3 g/dL (6.4-8.2)
[2022-04-17] MEDS: Normal Saline Flush 10 ML SYR IVP (08:24)
[2022-04-17 08:46] LABS: Abs Immature Grans 0.24 10^3/uL (0.0-0.06); Absolute Basophil Count 0.06 10^3/uL (0.0-0.2); Absolute Eosinophil Count 0.01 10^3/uL (0.0-0.7); Absolute Lymphocyte Count 0.83 10^3/uL (1.2-3.4); Absolute Neutrophil Count 4.07 10^3/uL (1.2-6.7); Basophils % 0.9; Eosinophils % 0.2; HCT 39.2 % (36.0-46.0); HGB 12.8 g/dL (11.2-15.7); Immature Grans % 3.7; Lymphocytes % 12.7; MCH 30.4 pg (27.0-33.0); MCHC 32.7 % (32.0-36.0); MCV 93 fL (80-95); MPV 10.1 fL (8.0-11.0); Neutrophils % 62.5; Nucleated RBC 0.5 % (0.0-0.3); Platelet Count 187 10^3/uL (130-400); RBC 4.21 10^6/uL (3.93-5.22); RDW 13.8 % (11.7-14.6); RDW-SD 44.1 fL; WBC 6.51 10^3/uL (4.4-10.8)
[2022-04-17 08:57] LABS: ALT 37 U/L (14-59); AST 17 U/L (15-37); Albumin 3.3 g/dL (3.4-5.0); Alkaline Phosphatase 103 U/L (46-116); Anion Gap 12.7 mmol/L (3-11); BUN 9 mg/dL (7-18); Bilirubin, Total 0.2 mg/dL (0.2-1.0); CO2 23.3 mmol/L (21.0-32.0); CREATININE 0.9 mg/dL (0.55-1.02); Calcium 8.6 mg/dL (8.5-10.1); Chloride 103 mmol/L (98-107); Estimated GFR 76.44 (mL/min/1.73m2); Glucose 215 mg/dL (74-106); Potassium 3.8 mmol/L (3.5-5.1); Sodium 139 mmol/L (136-145); Total Protein 7.3 g/dL (6.4-8.2)
== END 2022-04-25 23:59 | disposition home or self-care (01) ==
LOC: INF 03:39
PROVIDERS: PCP Internal Medicine; Visit Provider Internal Medicine Hematology & Oncology
DX: Z45.2 Encounter for adjustment and management of vascular access device (principal); Z17.0 Estrogen receptor positive status [ER+]; C50.411 Malignant neoplasm of upper-outer quadrant of right female breast; C50.811 Malignant neoplasm of overlapping sites of right female breast; Z79.899 Other long term (current) drug therapy
CPT/HCPCS: 36591; 80053; 85025

== ENCOUNTER 2022-05-15 03:29 | Outpatient (RCR) | payer MEDICAID, SELFPAY ==
[2022-05-01 08:29] LABS: Abs Immature Grans 0.35 10^3/uL (0.0-0.06); Absolute Basophil Count 0.06 10^3/uL (0.0-0.2); Absolute Eosinophil Count 0.02 10^3/uL (0.0-0.7); Absolute Lymphocyte Count 0.97 10^3/uL (1.2-3.4); Basophils % 0.7; Eosinophils % 0.2; HCT 33.7 % (36.0-46.0); HGB 11.1 g/dL (11.2-15.7); Immature Grans % 4.1; Lymphocytes % 11.4; MCH 30.9 pg (27.0-33.0); MCHC 32.9 % (32.0-36.0); MCV 94 fL (80-95); MPV 10.2 fL (8.0-11.0); Monocytes % 12.9; Neutrophils % 70.7; Nucleated RBC 0.6 % (0.0-0.3); Platelet Count 233 10^3/uL (130-400); RBC 3.59 10^6/uL (3.93-5.22); RDW 14.9 % (11.7-14.6); RDW-SD 47.3 fL
[2022-05-01] MEDS: Normal Saline Flush 10 ML SYR IVP (08:30)
[2022-05-01 08:42] LABS: ALT 23 U/L (14-59); AST 12 U/L (15-37); Albumin 3.1 g/dL (3.4-5.0); Alkaline Phosphatase 118 U/L (46-116); Anion Gap 8.8 mmol/L (3-11); BUN 8 mg/dL (7-18); Bilirubin, Total 0.2 mg/dL (0.2-1.0); CO2 28.2 mmol/L (21.0-32.0); CREATININE 0.7 mg/dL (0.55-1.02); Calcium 8.9 mg/dL (8.5-10.1); Chloride 103 mmol/L (98-107); Estimated GFR 103.35 (mL/min/1.73m2); Glucose 204 mg/dL (74-106); Potassium 3.7 mmol/L (3.5-5.1); Sodium 140 mmol/L (136-145); Total Protein 6.9 g/dL (6.4-8.2)
[2022-05-15] MEDS: Normal Saline Flush 10 ML SYR IVP (07:52)
[2022-05-15 08:10] LABS: Absolute Basophil Count 0.08 10^3/uL (0.0-0.2); HCT 35.4 % (36.0-46.0); HGB 11.2 g/dL (11.2-15.7); MCH 30.8 pg (27.0-33.0); MCHC 31.6 % (32.0-36.0); MCV 97 fL (80-95); MPV 10.1 fL (8.0-11.0); Platelet Count 245 10^3/uL (130-400); RBC 3.64 10^6/uL (3.93-5.22); RDW 16.7 % (11.7-14.6); RDW-SD 55.4 fL; WBC 7.62 10^3/uL (4.4-10.8)
[2022-05-15 08:26] LABS: Absolute Lymphocyte Count 0.99 10^3/uL (1.2-3.4); Absolute Neutrophil Count 5.56 10^3/uL (1.2-6.7); Atypical Lymphocytes % 1; Bands % 1
[2022-05-15 08:27] LABS: Diff Comment Manual Differential; Metamyelocytes % 1; Myelocytes % 2; Polychromasia Present
[2022-05-15 08:28] LABS: ALT 27 U/L (14-59); AST 16 U/L (15-37); Albumin 3.2 g/dL (3.4-5.0); Alkaline Phosphatase 123 U/L (46-116); Anion Gap 10.5 mmol/L (3-11); BUN 8 mg/dL (7-18); Bilirubin, Total 0.2 mg/dL (0.2-1.0); CO2 28.5 mmol/L (21.0-32.0); CREATININE 0.7 mg/dL (0.55-1.02); Calcium 8.7 mg/dL (8.5-10.1); Chloride 104 mmol/L (98-107); Estimated GFR 103.35 (mL/min/1.73m2); Glucose 210 mg/dL (74-106); Potassium 3.8 mmol/L (3.5-5.1); Sodium 143 mmol/L (136-145); Total Protein 7.3 g/dL (6.4-8.2)
[2022-05-15 08:29] LABS: Absolute Monocyte Count 0.76 10^3/uL (0.1-0.8)
== END 2022-05-26 23:59 | disposition home or self-care (01) ==
LOC: INF 03:29
PROVIDERS: PCP Internal Medicine; Visit Provider Internal Medicine Hematology & Oncology
DX: Z45.2 Encounter for adjustment and management of vascular access device (principal); C50.411 Malignant neoplasm of upper-outer quadrant of right female breast; Z17.0 Estrogen receptor positive status [ER+]; C50.811 Malignant neoplasm of overlapping sites of right female breast; Z79.899 Other long term (current) drug therapy
CPT/HCPCS: 36415; 36591; 80053; 85025

== ENCOUNTER 2022-06-12 03:13 | Outpatient (RCR) | payer MEDICAID, SELFPAY ==
[2022-05-29 08:58] LABS: Abs Immature Grans 0.02 10^3/uL (0.0-0.06); Absolute Basophil Count 0.07 10^3/uL (0.0-0.2); Absolute Eosinophil Count 0.09 10^3/uL (0.0-0.7); Absolute Lymphocyte Count 0.71 10^3/uL (1.2-3.4); Absolute Monocyte Count 1.14 10^3/uL (0.1-0.8); Absolute Neutrophil Count 2.51 10^3/uL (1.2-6.7); Basophils % 1.5; HCT 36.4 % (36.0-46.0); HGB 12.2 g/dL (11.2-15.7); Immature Grans % 0.4; Lymphocytes % 15.6; MCH 31.6 pg (27.0-33.0); MCHC 33.5 % (32.0-36.0); MCV 94 fL (80-95); MPV 9.7 fL (8.0-11.0); Monocytes % 25.1; Neutrophils % 55.4; Platelet Count 311 10^3/uL (130-400); RBC 3.86 10^6/uL (3.93-5.22); RDW 16.7 % (11.7-14.6); WBC 4.54 10^3/uL (4.4-10.8)
[2022-05-29] MEDS: Normal Saline Flush 10 ML SYR IVP (09:25)
[2022-05-29 09:34] LABS: ALT 30 U/L (14-59); AST 17 U/L (15-37); Albumin 3.4 g/dL (3.4-5.0); Alkaline Phosphatase 98 U/L (46-116); Anion Gap 8.4 mmol/L (3-11); BUN 7 mg/dL (7-18); Bilirubin, Total 0.4 mg/dL (0.2-1.0); CO2 27.6 mmol/L (21.0-32.0); CREATININE 0.7 mg/dL (0.55-1.02); Calcium 9.1 mg/dL (8.5-10.1); Chloride 106 mmol/L (98-107); Estimated GFR 103.35 (mL/min/1.73m2); Glucose 146 mg/dL (74-106); Potassium 3.9 mmol/L (3.5-5.1); Sodium 142 mmol/L (136-145); Total Protein 7.2 g/dL (6.4-8.2)
[2022-06-12] MEDS: Normal Saline Flush 10 ML SYR IVP (07:55)
[2022-06-12 08:01] LABS: Abs Immature Grans 0.02 10^3/uL (0.0-0.06); Absolute Basophil Count 0.07 10^3/uL (0.0-0.2); Absolute Eosinophil Count 0.11 10^3/uL (0.0-0.7); Absolute Lymphocyte Count 0.95 10^3/uL (1.2-3.4); Absolute Monocyte Count 1.05 10^3/uL (0.1-0.8); Absolute Neutrophil Count 3.21 10^3/uL (1.2-6.7); Basophils % 1.3; HCT 36.4 % (36.0-46.0); HGB 11.9 g/dL (11.2-15.7); Immature Grans % 0.4; Lymphocytes % 17.6; MCH 30.9 pg (27.0-33.0); MCHC 32.7 % (32.0-36.0); MCV 95 fL (80-95); MPV 9.6 fL (8.0-11.0); Monocytes % 19.4; Neutrophils % 59.3; Platelet Count 329 10^3/uL (130-400); RBC 3.85 10^6/uL (3.93-5.22); RDW 15.4 % (11.7-14.6); RDW-SD 53.1 fL; WBC 5.41 10^3/uL (4.4-10.8)
[2022-06-12 08:15] LABS: ALT 28 U/L (14-59); AST 19 U/L (15-37); Albumin 3.3 g/dL (3.4-5.0); Alkaline Phosphatase 116 U/L (46-116); Anion Gap 9.5 mmol/L (3-11); BUN 8 mg/dL (7-18); Bilirubin, Total 0.4 mg/dL (0.2-1.0); CO2 26.5 mmol/L (21.0-32.0); Chloride 103 mmol/L (98-107); Estimated GFR 67.36 (mL/min/1.73m2); Glucose 216 mg/dL (74-106); Potassium 3.8 mmol/L (3.5-5.1); Sodium 139 mmol/L (136-145); Total Protein 7.6 g/dL (6.4-8.2)
== END 2022-06-25 23:59 | disposition home or self-care (01) ==
LOC: INF 03:13
PROVIDERS: PCP Internal Medicine; Visit Provider Internal Medicine Hematology & Oncology
DX: C50.411 Malignant neoplasm of upper-outer quadrant of right female breast (principal); Z17.0 Estrogen receptor positive status [ER+]; C50.811 Malignant neoplasm of overlapping sites of right female breast; Z79.899 Other long term (current) drug therapy; Z45.2 Encounter for adjustment and management of vascular access device
CPT/HCPCS: 36591; 80053; 85025

== ENCOUNTER 2022-06-26 03:21 | Outpatient (RCR) | payer MEDICAID, SELFPAY ==
[2022-06-26] MEDS: Normal Saline Flush 10 ML SYR IVP (09:04)
[2022-06-26 09:13] LABS: Abs Immature Grans 0.01 10^3/uL (0.0-0.06); Absolute Basophil Count 0.07 10^3/uL (0.0-0.2); Absolute Eosinophil Count 0.12 10^3/uL (0.0-0.7); Absolute Lymphocyte Count 0.96 10^3/uL (1.2-3.4); Absolute Monocyte Count 0.77 10^3/uL (0.1-0.8); Basophils % 1.6; Eosinophils % 2.7; HCT 38.7 % (36.0-46.0); HGB 12.5 g/dL (11.2-15.7); Immature Grans % 0.2; Lymphocytes % 21.7; MCH 30.4 pg (27.0-33.0); MCHC 32.3 % (32.0-36.0); MCV 94 fL (80-95); MPV 9.8 fL (8.0-11.0); Monocytes % 17.4; Neutrophils % 56.4; Platelet Count 371 10^3/uL (130-400); RBC 4.11 10^6/uL (3.93-5.22); RDW 15.9 % (11.7-14.6); WBC 4.43 10^3/uL (4.4-10.8)
[2022-06-26 09:33] LABS: ALT 31 U/L (14-59); AST 17 U/L (15-37); Albumin 3.5 g/dL (3.4-5.0); Alkaline Phosphatase 109 U/L (46-116); BUN 9 mg/dL (7-18); Bilirubin, Total 0.3 mg/dL (0.2-1.0); CREATININE 0.8 mg/dL (0.55-1.02); Chloride 103 mmol/L (98-107); Estimated GFR 88.05 (mL/min/1.73m2); Glucose 188 mg/dL (74-106); Potassium 3.6 mmol/L (3.5-5.1); Sodium 138 mmol/L (136-145); Total Protein 7.6 g/dL (6.4-8.2)
== END 2022-07-26 23:59 | disposition home or self-care (01) ==
LOC: INF 03:21
PROVIDERS: PCP Internal Medicine; Visit Provider Internal Medicine Hematology & Oncology
DX: C50.411 Malignant neoplasm of upper-outer quadrant of right female breast (principal); Z17.0 Estrogen receptor positive status [ER+]; C50.811 Malignant neoplasm of overlapping sites of right female breast; Z79.899 Other long term (current) drug therapy; Z45.2 Encounter for adjustment and management of vascular access device
CPT/HCPCS: 36591; 80053; 85025